=== PATIENT | female | born 1990 | race Two or more races ===

== ENCOUNTER 2018-12-18 15:04 | Emergency (ER) | payer BC, OTHER ==
--- NOTE | 2018-12-18 15:56 | ED ---
- HPI Summary HPI Summary: Pt presents w/ body fluid exposure prior to arrival. 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 She flushed her eye with saline per protocol. Denies pain, change in vision and use of contact lenses. Feels fine otherwise. Tetanus is UTD. Source pt is currently inpatient and she/ deny h/o HIV/Hep C however she has not been tested in many years. She is also believed to be a low risk patient however no definitive testing has been performed. Account #[id number]. This pt spoke w/ source pt who denies h/o HIV, Hep C but hasn't been tested in a while. Spoke with charge nurse, Zuleika Can, and cleaner housekeeping, Kwabena Cornejo, who are coordinating efforts to have source pt tested. - History of Current Complaint Chief Complaint: EDExposureBodyFluid Stated Complaint: "EXPOSURE TO BODY FLUIDS PER PT" Time Seen by Provider: 12/18/18 15:10 Body Fluid Exposure: Visceral Fluids - Source Information HIV: Unknown - agreed to testing Hepatitis: Unknown - agreed to testing PMH/Surg Hx/FS Hx/Imm Hx Previously Healthy: Yes - Immunization History Immunizations Up to Date: Yes Infectious Disease History: No Infectious Disease History: Denies: Hx Human Immunodeficiency Virus (HIV), Traveled Outside the [place] in Last 30 Days - Family History Known Family History: Positive: Unknown - Social History Occupation: Employed Full-time - nurse Alcohol Use: Occasionally Hx Substance Use: No Substance Use Type: Reports: None Hx Tobacco Use: No Smoking Status (MU): Never Smoked Tobacco Review of Systems Constitutional: Negative Eyes: Negative ENT: Negative Negative: Vomiting, Nausea Skin: Negative Neurological: Negative Psychological: Normal All Other Systems Reviewed And Are Negative: Yes Physical Exam Triage Information Reviewed: Yes Vital Signs On Initial Exam: Initial Vitals Temp Pulse Resp BP Pulse Ox 98.4 F 67 16 114/84 100 12/18/18 15:05 12/18/18 15:05 12/18/18 15:05 12/18/18 15:05 12/18/18 15:05 Vital Signs Reviewed: Yes Appearance: Positive: Well-Appearing, No Pain Distress, Well-Nourished Skin: Positive: Warm, Skin Color Reflects Adequate Perfusion, Dry Head/Face: Positive: Normal Head/Face Inspection Eyes: Positive: Normal, EOMI, SUSANNE, Conjunctiva Clear. Negative: Conjunctiva Inflammed, Discharge ENT: Positive: Normal ENT inspection, Hearing grossly normal, Pharynx normal Neck: Positive: Supple, Nontender Respiratory/Lung Sounds: Positive: Breath Sounds Present Cardiovascular: Positive: Normal Musculoskeletal: Positive: Normal, Strength/ROM Intact Neurological: Positive: Normal, Sensory/Motor Intact, Alert, Oriented to Person Place, Time, CN Intact II-III Psychiatric: Positive: Normal - Cornell Coma Scale Best Eye Response: 4 - Spontaneous Best Motor Response: 6 - Obeys Commands Best Verbal Response: 5 - Oriented Coma Scale Total: 15 Diagnostics - Vital Signs Vital Signs Temp Pulse Resp BP Pulse Ox 12/18/18 15:05 98.4 F 67 16 114/84 100 - Laboratory Result Diagrams: 12/18/18 17:35 12/18/18 17:35 Lab Statement: Any lab studies that have been ordered have been reviewed, and results considered in the medical decision making process. [place] Course/Dx - Course Course Of Treatment: *IF SOURCE PT NEG, PT DOES NOT WANT BASELINE TESTING. *IF SOURCE PT IS +, WANTS BASELINE TESTING - CONSIDER TX - Diagnoses Provider Diagnoses: Employee exposure to body fluids Discharge - Sign-Out/Discharge Documenting (check all that apply): Patient Departure Patient Received Moderate/Deep Sedation with Procedure: No - Discharge Plan Condition: Stable Disposition: HOME Patient Education Materials: Body Substance Exposure (ED) Referrals: Bakari CORLEY,Joselito Vegas [Medical Doctor] - Additional Instructions: You have had a low risk body fluid exposure - test results are pending and you should receive a call tonight with a recommendation regarding need to start PrEP or not. If you have not heard, please call before the end of the night for these results. *If you are recommended to start PrEp you will need to follow-up with Dr. Malave. Call Thursday to schedule appointment. - Billing Disposition and Condition Condition: STABLE Disposition: Home
[2018-12-18 17:43] LABS: ABS Eosinophils 0.1 10^3/ul (0-0.6); ABS Lymphocytes 2.3 10^3/ul (1.0-4.8); ABS Monocytes 0.3 10^3/ul (0-0.8); ABS Neutrophils 2.6 10^3/ul (1.5-7.7); Eosinophil % 1.1 %; Hematocrit 40 % (35-47); Hemoglobin 13.3 g/dL (12.0-16.0); Lymphocyte % 43.2 %; Mean Corpuscular HGB Conc 34 g/dL (31-36); Mean Corpuscular Hemoglobin 32 pg (27-31); Mean Corpuscular Volume 96 fL (80-97); Mean Platelet Volume 7.4 fL (7.4-10.4); Nucleated Red Blood Cells % 0.1; Platelet Count 215 10^3/uL (150-450); Red Blood Count 4.12 10^6 /uL (3.70-4.87); Red Cell Distribution Width 13 % (10.5-15); White Blood Count 5.2 10^3/uL (3.5-10.8)
[2018-12-18 17:56] VITALS: BP 107/67
[2018-12-18 18:00] LABS: ALT 12 U/L (7-52); AST 14 U/L (13-39); Albumin 4.2 g/dL (3.2-5.2); Albumin/Globulin Ratio 1.9 (1-3); Alkaline Phosphatase 41 U/L (34-104); Anion Gap 1 mmol/L (2-11); BUN/Creatinine Ratio 11.5 (8-20); Blood Urea Nitrogen 7 mg/dL (6-24); CO2 Carbon Dioxide 32 mmol/L (22-32); Calcium 9.2 mg/dL (8.6-10.3); Chloride 106 mmol/L (101-111); EGFR African American 139.3 (>60); EGFR Non-African American 115.2 (>60); Globulin 2.2 g/dL (2-4); Glucose 107 mg/dL (70-100); Potassium 4.6 mmol/L (3.5-5.0); Sodium 139 mmol/L (135-145); Total Protein 6.4 g/dL (6.4-8.9)
[2018-12-18 18:06] LABS: HCG Pregnancy < 0.60 mIU/mL
[2018-12-18 18:35] LABS: Rapid HIV 1 Nonreactive (Nonreactive)
[2018-12-20 10:59] LABS: Hepatitis B Surface Ab Immune (Immune)
[2018-12-20 11:08] LABS: Hepatitis B Surface Antigen Nonreactive (Nonreactive)
[2018-12-20 11:34] LABS: Hepatitis C Antibody Nonreactive (Nonreactive)
== END 2018-12-18 17:55 | disposition home or self-care (01) ==
LOC: ED 15:04
DX: Z77.21 Contact with and (suspected) exposure to potentially hazardous body fluids (principal); X58.XXXA Exposure to other specified factors, initial encounter; Y93.F9 Activity, other caregiving; Y92.239 Unspecified place in hospital as the place of occurrence of the external cause; Y99.0 Civilian activity done for income or pay
CPT/HCPCS: 36415; 80053; 84702; 85025; 86703; 86706; 86803; 87340; 99282